=== PATIENT | male | born 1990 | race Caucasian/White ===

== ENCOUNTER 2023-04-10 05:52 | Emergency (ER) | payer OTHER ==
[2023-04-10 06:02] VITALS: BP 122/81; PULSE 86; RESP 18; TEMP 98.4; BMI 28.0
[2023-04-10] MEDS ORDERED: DIPHTH,PERTUSS(ACELL),TET 0.5 ML DISP.SYRIN IM ONE ×2 (06:12→06:25)
== END 2023-04-10 08:16 | disposition home or self-care (01) ==
LOC: JER 05:52
PROC: 0HQKXZZ Repair Right Lower Leg Skin, External Approach (ICD-10-PCS; principal; 2023-04-10)
PROC: 3E0234Z Introduction of Serum, Toxoid and Vaccine into Muscle, Percutaneous Approach (ICD-10-PCS; 2023-04-10)
DX: S81.811A Laceration without foreign body, right lower leg, initial encounter (principal); W22.8XXA Striking against or struck by other objects, initial encounter
CPT/HCPCS: 90715; 99282-25

== ENCOUNTER 2024-04-06 21:33 | Inpatient (IN) | payer OTHER ==
[2024-04-06 21:49] VITALS: BMI 26.4
[2024-04-06 22:18] LABS: HEMOGLOBIN 12.3 GM/dL (11.7-16.9); LYMPH % 4.6 % (8-40); MCH 29.2 pg (25.7-33.7); MCHC 33.2 g/dl (32.0-35.9); MEAN CELL VOLUME 88.1 fl (80-96); MONO % 6.6 % (3.8-10.2); NEUT % 87.8 % (42.8-82.8); PLATELET COUNT 46 10^3/uL (134-434); RDW 15.9 % (11.9-15.9); WHITE BLOOD COUNT 4.1 K/mm3 (4.0-10.0)
[2024-04-06 22:23] LABS: PROTHROMBIN TIME (PATIENT) 11.5 SEC (9.7-13.0)
[2024-04-06 22:26] LABS: ACTIVATED PTT 27.9 SECONDS (25.2-36.5)
[2024-04-06 22:51] LABS: POTASSIUM 3.3 mmol/L (3.5-5.1)
[2024-04-06 22:52] LABS: ALBUMIN 4.1 g/dl (3.4-5.0); BLOOD UREA NITROGEN 6.8 mg/dL (7-18); CALCIUM 8.2 mg/dL (8.5-10.1); MAGNESIUM 1.4 mg/dL (1.8-2.4)
[2024-04-06 22:57] LABS: BILIRUBIN,TOTAL 0.8 mg/dL (0.2-1); TOT PROT 7.5 g/dl (6.4-8.2)
[2024-04-07] MEDS: FOLIC ACID INJECTION - 1 MG, THIAMINE HCL 100 MG, MULTIVIT INJECTION ADULT 10 ML in SOD... IVPB ONE (00:34)
[2024-04-07] MEDS ORDERED: LORazepam 1 MG TABLET PO PRN ×2 (04:00→14:43)
[2024-04-07] MEDS ORDERED: LORazepam 1 MG TABLET ONE ×2 (05:19→11:11)
[2024-04-07] MEDS: LORazepam 1 MG TABLET PO SCH ×2 (05:32→16:47)
[2024-04-07] MEDS ORDERED: levETIRAcetam 500 MG/5 ML INJECTION VIAL IVPB ONE (07:59)
[2024-04-07] MEDS: levETIRAcetam 500 MG/5 ML INJECTION VIAL IVPB ONE (08:06)
[2024-04-07 08:15] LABS: HEMATOCRIT 39.2 % (35.4-49); HEMOGLOBIN 12.8 GM/dL (11.7-16.9); MCHC 32.8 g/dl (32.0-35.9); MEAN CELL VOLUME 88.6 fl (80-96); MEAN PLT VOLUME 7.6 fl (7.5-11.1); RBC 4.42 M/mm3 (4.00-5.60); RDW 15.7 % (11.9-15.9); WHITE BLOOD COUNT 5.6 K/mm3 (4.0-10.0)
[2024-04-07 08:28] LABS: PLATELET COUNT 36 10^3/uL (134-434); POTASSIUM 3.3 mmol/L (3.5-5.1)
[2024-04-07 08:35] LABS: ALBUMIN 3.9 g/dl (3.4-5.0); BLOOD UREA NITROGEN 7.2 mg/dL (7-18); CALCIUM 8.2 mg/dL (8.5-10.1); MAGNESIUM 1.9 mg/dL (1.8-2.4)
[2024-04-07 08:38] LABS: PHOSPHOROUS 1.9 mg/dL (2.5-4.9)
[2024-04-07 08:39] LABS: CREATININE 0.9 mg/dL (0.55-1.3)
[2024-04-07 08:40] LABS: BILIRUBIN,TOTAL 1.3 mg/dL (0.2-1); TOT PROT 7.5 g/dl (6.4-8.2)
[2024-04-07] MEDS ORDERED: POTASSIUM CHLORIDE TABS 20 MEQ TABLET.ER (FP) PO ONE (09:01)
[2024-04-07] MEDS: POTASSIUM CHLORIDE TABS 10 MEQ TABLET.ER (FP) PO ONE (09:36)
[2024-04-07] MEDS: SODIUM CHLORIDE 1,000 ML with POTASSIUM CHLORIDE 40 MEQ IV SCH (09:37)
[2024-04-07] MEDS: POTASSIUM PHOSPHATE 30 MM in SODIUM CHLORIDE 500 ML IVPB ONE (09:37)
[2024-04-07] MEDS ORDERED: FOLIC ACID 1 MG TABLET (FP) ONE (11:10)
[2024-04-07] MEDS ORDERED: THIAMINE 100 MG TABLET ONE (11:10)
[2024-04-07] MEDS: FOLIC ACID 1 MG TABLET (FP) PO SCH (11:14)
[2024-04-07] MEDS: THIAMINE 100 MG TABLET PO SCH ×2 (11:14→21:59)
[2024-04-07 14:58] VITALS: RESP 18
[2024-04-07] MEDS ORDERED: ENOXAPARIN NA (PORCINE) 40 MG/0.4 ML DISP.SYRIN SQ SCH (16:45)
[2024-04-07] MEDS: levETIRAcetam 500 MG TABLET (FP) PO SCH (21:59)
[2024-04-07] MEDS ORDERED: levETIRAcetam 500 MG TABLET (FP) PO SCH (22:00)
[2024-04-07] MEDS: LORazepam 1 MG TABLET PO PRN (23:46)
[2024-04-07] MEDS: SODIUM CHLORIDE 1,000 ML with POTASSIUM CHLORIDE 40 MEQ IV ONE (23:47)
[2024-04-08] MEDS: diazePAM CARPU-JECT 10 MG/2 ML DISP.SYRIN IVPUSH ONE ×2 (00:11→05:18)
[2024-04-08] MEDS: PHENobarbital SODIUM 65 MG/1 ML VIAL IVPUSH ONE (00:21)
[2024-04-08] MEDS ORDERED: LORazepam 1 MG TABLET PO SCH (05:00)
[2024-04-08] MEDS: LORazepam 1 MG TABLET PO SCH (06:30)
[2024-04-08] MEDS: THIAMINE HCL 200 MG/2 ML VIAL IVPB SCH ×2 (06:46→09:08)
[2024-04-08] MEDS: PHENobarbital SODIUM 65 MG/1 ML VIAL IVPUSH SCH (06:46)
[2024-04-08] MEDS: SODIUM CHLORIDE 1,000 ML with POTASSIUM CHLORIDE 20 MEQ IV SCH (08:29)
[2024-04-08] MEDS: FOLIC ACID 1 MG TABLET (FP) PO SCH (09:09)
[2024-04-08] MEDS ORDERED: THIAMINE 100 MG TABLET PO SCH (10:00)
[2024-04-08 10:38] LABS: BASO % 0.9 % (0-2.0); EOS % 1.9 % (0-4.5); HEMATOCRIT 40.1 % (35.4-49); HEMOGLOBIN 13.3 GM/dL (11.7-16.9); LYMPH % 26.7 % (8-40); MCH 29.6 pg (25.7-33.7); MCHC 33.2 g/dl (32.0-35.9); MEAN CELL VOLUME 89.1 fl (80-96); MEAN PLT VOLUME 8.1 fl (7.5-11.1); MONO % 15.2 % (3.8-10.2); NEUT % 55.3 % (42.8-82.8); PLATELET COUNT 45 10^3/uL (134-434); RDW 15.4 % (11.9-15.9); WHITE BLOOD COUNT 4.1 K/mm3 (4.0-10.0)
[2024-04-08 11:23] LABS: ALBUMIN 3.8 g/dl (3.4-5.0); CALCIUM 9.2 mg/dL (8.5-10.1)
[2024-04-08 11:24] LABS: BLOOD UREA NITROGEN 6.8 mg/dL (7-18)
[2024-04-08 11:27] LABS: CREATININE 0.8 mg/dL (0.55-1.3); PHOSPHOROUS 2.6 mg/dL (2.5-4.9)
[2024-04-08 11:28] LABS: BILIRUBIN,TOTAL 1.1 mg/dL (0.2-1); TOT PROT 7.2 g/dl (6.4-8.2)
[2024-04-08] MEDS ORDERED: LORazepam 1 MG TABLET PO PRN (15:42)
[2024-04-08] MEDS: ACAMPROSATE CALCIUM 333 MG TABLET.DR PO SCH (18:00)
[2024-04-09] MEDS ORDERED: LORazepam 0.5 MG TABLET PO PRN ×2
[2024-04-09] MEDS ORDERED: LORazepam 0.5 MG TABLET PO SCH ×2 (05:00)
[2024-04-09] MEDS: LORazepam 1 MG TABLET PO SCH (06:37)
[2024-04-09 10:36] VITALS: BP 110/75; PULSE 80; TEMP 98.6
[2024-04-09 11:55] LABS: HEMATOCRIT 41.1 % (35.4-49); HEMOGLOBIN 13.9 GM/dL (11.7-16.9); MCH 29.7 pg (25.7-33.7); MCHC 33.7 g/dl (32.0-35.9); MEAN CELL VOLUME 88.2 fl (80-96); MEAN PLT VOLUME 8.4 fl (7.5-11.1); PLATELET COUNT 82 10^3/uL (134-434); RBC 4.66 M/mm3 (4.00-5.60); RDW 15.2 % (11.9-15.9); WHITE BLOOD COUNT 3.1 K/mm3 (4.0-10.0)
[2024-04-09 12:29] LABS: CALCIUM 9.5 mg/dL (8.5-10.1)
[2024-04-09 12:30] LABS: ALBUMIN 3.8 g/dl (3.4-5.0); BLOOD UREA NITROGEN 7.3 mg/dL (7-18)
[2024-04-09 12:33] LABS: CREATININE 0.9 mg/dL (0.55-1.3)
[2024-04-09 12:35] LABS: BILIRUBIN,TOTAL 0.9 mg/dL (0.2-1); TOT PROT 7.6 g/dl (6.4-8.2)
[2024-04-10] MEDS ORDERED: LORazepam 0.5 MG TABLET PO ONE ×2 (05:00)
[2024-04-12] MEDS ORDERED: THIAMINE HCL 200 MG/2 ML VIAL IVPB SCH (10:00)
== END 2024-04-09 18:31 | disposition home or self-care (01) | DRG 53 ==
LOC: JER 21:33 → JERBED 04-07 00:48 → J5S 04-07 14:36
PROVIDERS: ADMIT Internal Medicine; ATTEND Internal Medicine
PROC: 4A10X4Z Monitoring of Central Nervous Electrical Activity, External Approach (ICD-10-PCS; principal; 2024-04-08)
DX: R56.9 Unspecified convulsions (principal); D69.6 Thrombocytopenia, unspecified; R16.0 Hepatomegaly, not elsewhere classified; E83.39 Other disorders of phosphorus metabolism; E87.6 Hypokalemia; F10.230 Alcohol dependence with withdrawal, uncomplicated; K70.10 Alcoholic hepatitis without ascites; F32.A Depression, unspecified; K76.0 Fatty (change of) liver, not elsewhere classified; K82.4 Cholesterolosis of gallbladder
CPT/HCPCS: 36415; 70450-TC; 76705-TC; 80053; 80177; 80307; 82140; 83735; 84100; 85025; 85027; 85610; 85730; 93005; 93010; 95816; 99285-25